=== PATIENT | female | born 1970 | race Asian ===

== ENCOUNTER → 2017-06-16 | Outpatient (CLI) | payer BC | LOC: BRMIMAGING 13:35 | PROVIDERS: ATTEND Physician Assistant Medical | DX: Z12.31 Encounter for screening mammogram for malignant neoplasm of breast (principal) | CPT/HCPCS: G0202 ==

== ENCOUNTER → 2018-07-14 | Outpatient (CLI) | payer BC | LOC: BRMIMAGING 15:19 | PROVIDERS: ATTEND Physician Assistant Medical | DX: Z12.31 Encounter for screening mammogram for malignant neoplasm of breast (principal) ==